=== PATIENT | male | born 1945 | race Caucasian/White ===

== ENCOUNTER 2021-01-14 11:22 | Inpatient (IN) | payer OTHER, SELFPAY ==
[~2021-01-14] VITALS: Ht 177.8 cm; Wt 74.8 kg
[2021-01-14] MEDS: HYDROCORTISONE NA SUCC 100 MG/2 ML VIAL IV SCH (08:40)
--- NOTE | 2021-01-14 11:23 | NUR ---
1117-- PT BIBRadha VIA GURNEY TO BED 01.
--- NOTE | 2021-01-14 11:30 | NUR ---
BILATERAL HAND 20 G IVS ESTABLISHED. IVS ARE PATENT.
[2021-01-14 11:32] VITALS: BP_SYST 154; BP_SYST 68; BP_DIAS 131; BP_DIAS 43
[2021-01-14] MEDS ORDERED: NACL 0.9% 1,000 ML IV ONE ×2 (11:35→13:00)
--- NOTE | 2021-01-14 11:36 | NUR ---
75/M [place]UEZ [place] [facility] [place] EMS STATES STAFF CALLED 911 AFTER PATIENT WAS FOUND SOB AND LETHARGIC X1 HOUR, OXYGEN SATURATION ON ROOM AIR 71% UPON EMS ARRIVAL, EMS INITIATED BVM ON SCENE, SATURATION 92%. PER STAFF PT COVID +. PATIENT HAS DIMINISHED BREATH SOUNDS THROUGHOUT, SCABBED ABRASION TO R KNEE, PRESSURE ULCER TO SACRUM (SEE PHOTO). GCS 8, UNABLE TO ANSWER TO QUESTIONS. PT IN GOWN, PLACED ON TOYS INSPECTOR. RT AT BEDSIDE. MEDHX: BLADDER AND KIDNEY CANCER, HTN, RIGHT SIDED WEAKNESS. SEE CHART FOR EXTENSIVE HX ALLERGIES: NKA
[2021-01-14 12:36] LABS: BASOPHILS % (AUTO) 0.1 % (0.0-2.0); HEMATOCRIT 33.6 % (36-52); HEMOGLOBIN 11.1 g/dL (12.0-18.0); LYMPHOCYTES # (AUTO) 0.2 K/uL (2.0-11.5); MEAN CORPUSCULAR HEMOGLOBIN 31 pg (27-31); MEAN CORPUSCULAR HGB CONC 33 g/dL (33-37); MEAN CORPUSCULAR VOLUME 93.1 fL (80-94); MONOCYTES # (AUTO) 1.1 K/uL (0.8-1.0); MONOCYTES % (AUTO) 4.4 % (1.7-9.3); NEUTROPHILS # (AUTO) 24.4 K/uL (1.8-7.7); NEUTROPHILS % (AUTO) 94.5 % (42.2-75.2); PLATELET COUNT (AUTO) 291 K/uL (140-450); RED BLOOD CELL COUNT(AUTO) 3.61 MIL/uL (4.20-6.10); RED CELL DISTRIBUTION WIDTH 15.7 % (11.6-13.7)
--- NOTE | 2021-01-14 12:45 | NUR ---
STRAIGHT CATHETER INSERTED FOR URINE SAMPLE USING STERILE TECHNIQUE. CLOUDY/DARK URINE COLLECTED AND WALKED TO LAB.
[2021-01-14] MEDS ORDERED: PIPERACILLIN/TAZOBACTAM 3.375 GM in DEXTROSE 5% 50 ML IV ONE (12:55)
[2021-01-14 12:58] LABS: ALBUMIN 2.2 g/dL (3.4-5.0); ANION GAP 17.6 (8-16); ASPARTATE AMINOTRANSFERASE 39 U/L (15-37); CARBON DIOXIDE 22.1 mmol/L (21-32); CHLORIDE 97 mmol/L (98-107); GLUCOSE 115 mg/dL (74-106); LIPASE 95 U/L (73-393); POTASSIUM 5.7 mmol/L (3.5-5.1); SODIUM SERUM 131 mmol/L (136-145); TOTAL BILIRUBIN 0.7 mg/dL (0.0-1.0)
[2021-01-14 12:59] LABS: APPEARANCE,URINE CLOUDY (CLEAR); BILIRUBIN,URINE 1+ (NEGATIVE); COLOR,URINE YELLOW (YELLOW); LEUKOCYTE ESTERASE ,URINE 3+ (NEGATIVE); UGLUCOSE NEGATIVE (NEGATIVE)
[2021-01-14 12:59] LABS: UREA NITROGEN, BLOOD 70 mg/dL (7-18)
[2021-01-14 13:00] LABS: CREATININE 4.1 mg/dL (0.6-1.3)
[2021-01-14 13:03] LABS: WHITE BLOOD COUNT (AUTO) 25.9 K/uL (4.8-10.8)
[2021-01-14] MEDS ORDERED: PIPERACILLIN/TAZOBACTAM 3.375 GM VIAL IV ONE (13:12)
[2021-01-14 13:19] LABS: NITRITE, URINE POSITIVE (NEGATIVE)
[2021-01-14 13:24] LABS: WBC,URINE TOO MANY TO COUNT /HPF (0-5)
[2021-01-14 13:27] LABS: BLOOD, URINE 1+ (NEGATIVE)
[2021-01-14] MEDS ORDERED: NACL 0.9% 500 ML IV ONE ×3 (13:30→18:35)
[2021-01-14 13:32] LABS: RBC,URINE 0-5 /HPF (0-5)
[2021-01-14] MEDS ORDERED: LORazepam 2 MG/ML VIAL IVP ONE (13:40)
[2021-01-14] MEDS ORDERED: LORazepam 2 MG/ML VIAL ONE (13:40)
[2021-01-14] MEDS ORDERED: NOREPINEPHRINE 4 MG/4 ML VIAL IV ONE ×4 (13:45→22:47)
[2021-01-14] MEDS ORDERED: MAG SULF 2000 MG/WATER PREMIX 50 ML IV PRN (14:00)
[2021-01-14] MEDS ORDERED: LORazepam 2 MG/ML VIAL IM/IVP PRN (14:00)
[2021-01-14] MEDS ORDERED: HYDROcodone/APAP 5/325 MG 1 TAB TAB PO PRN (14:00)
[2021-01-14] MEDS ORDERED: POTASSIUM CHLORIDE 10 MEQ TABER PO PRN (14:00)
[2021-01-14] MEDS ORDERED: ACETAMINOPHEN 325 MG TAB PO PRN (14:00)
[2021-01-14] MEDS ORDERED: DOCUSATE SODIUM 100 MG GELCAP PO PRN (14:00)
[2021-01-14] MEDS ORDERED: SODIUM PHOS / POTASSIUM PHOS 1 PKT PDR PO PRN (14:00)
[2021-01-14] MEDS ORDERED: ONDANSETRON 4 MG/2 ML VIAL IVP PRN (14:00)
[2021-01-14] MEDS ORDERED: SODIUM ZIRCONIUM CYCLOSILICATE 10 GM POWD.PACK PO ONE (14:05)
--- NOTE | 2021-01-14 14:15 | NUR ---
dr leon at bedside for central line insertion.
[2021-01-14] MEDS: NOREPINEPHRINE 4 MG in DEXTROSE 5% 250 ML IV ONE ×2 (14:30→14:32)
[2021-01-14 14:58] LABS: FREE T4 (FREE THYROXINE) 1.29 ng/dL (0.76-1.46); THYROID STIMULATING HORMONE 2.48 uIU/mL (0.34-3.74)
[2021-01-14] MEDS: NACL 0.9% 1,000 ML IV SCH (15:15)
[2021-01-14] MEDS ORDERED: RENAL DOSING PER PHARMACY MC PRN (15:50)
[2021-01-14 16:58] VITALS: BP 111/51
--- NOTE | 2021-01-14 17:15 | NUR ---
MONSTER LITTLE AND NOVEL SAMPLES COMPLETED AND WALKED TO LAB
--- NOTE | 2021-01-14 18:00 | NUR ---
WOUND PICTURES TAKEN AND SIGNED BY RN. DR DONNA ROSENBAUM TO SIGN WOUND PICTURES. FORMS PLACED IN CHART.
[2021-01-14] MEDS ORDERED: PHENYLEPHRINE 10 MG in NACL 0.9% 250 ML IV SCH (18:20)
--- NOTE | 2021-01-14 18:27 | NUR ---
CONTACTED DONNA, PT MAXED OUT ON LEVO WITH BP 87/41 JOVANNY 55. PER DONNA, START PT ON CHELSEY 50MCG/ MIN AND CONTACT CRITICAL CARE SPOKE WITH DR ROCHA, CRITICAL CARE, AND RECEIVED ORDER FOR 500ML NS BOLUS, HYDROCORTISONE 100 MG IV PUSH Q8 HR AND TO START PT ON VASOPRESSIN IF CHELSEY DOES NOT WORK VASOPRESSIN START AT 0.03UNITS/MIN FOR SYSTOLIC >90 OR MAP >65
[2021-01-14] MEDS ORDERED: PHENYLEPHRINE 10 MG/ML VIAL ONE ×2 (19:05→22:33)
--- NOTE | 2021-01-14 19:30 | NUR ---
SEE IV SPREAD SHEET FOR VITALS.
--- NOTE | 2021-01-14 19:35 | NUR ---
received report from Dory ROWAN for continuity of care
--- NOTE | 2021-01-14 19:35 | NUR ---
GAVE REPORT TO VIOLETA RN, TRANSFER OF CARE AT THIS TIME.
[2021-01-14 19:44] VITALS: BP 130/51
[2021-01-14] MEDS ORDERED: HYDROCORTISONE NA SUCC 100 MG/2 ML VIAL IV SCH (21:00)
[2021-01-14] MEDS: PIPERACILLIN/TAZOBACTAM 3.375 GM in DEXTROSE 5% 50 ML IV SCH (21:00)
--- NOTE | 2021-01-14 21:35 | NUR ---
Called Macy REED for verification on zosyn orders. Per discontinue 3.375gm zosyn Q8H and use the 2.25gm of zosyn Q8H
[2021-01-14] MEDS ORDERED: PIPERACILLIN/TAZOBACTAM 2.25 GM VIAL IV ONE (21:40)
[2021-01-14] MEDS: PIPERACILLIN/TAZOBACTAM 2.25 GM in DEXTROSE 5% 50 ML IV SCH (21:41)
[2021-01-14 22:53] VITALS: BP 101/49
--- NOTE | 2021-01-14 22:59 | NUR ---
PT PLACED ON NIV 02/12 f14 FOR WOB AND HFNC REMAINS ON STDBY AT BEDSIDE BIPAP ALARMS ON AND AUDIBLE BIPAP PLUGGED INTO RED OUTLET ED DR VIVAS PT IS CURRENTLY IN ED ON ICU HOLD
[2021-01-15] MEDS ORDERED: PHENYLEPHRINE 10 MG/ML VIAL ONE (00:07)
[2021-01-15] MEDS: NACL 0.9% 1,000 ML IV SCH ×3 (01:00→20:00)
[2021-01-15] MEDS ORDERED: NOREPINEPHRINE 4 MG/4 ML VIAL IV ONE ×2 (01:06→03:07)
--- NOTE | 2021-01-15 01:20 | NUR ---
pericare done and repositioned patient
--- NOTE | 2021-01-15 01:23 | NUR ---
ABNORM ABG RESULTS REPORTED TO DR BLANK PH 7.297 CO2 34.0 PO2 70.8 HCO3 16.2 BE -9.2 DR BLANK AWARE PT WAS PLACED ON NIV 02/12 f14 100% AND REQUESTING NO CHANGES AT THIS TIME BUT IS REQUESTING REPEAT ABG @ 8AM
[2021-01-15 01:41] VITALS: BP 127/57
[2021-01-15] MEDS: HYDROCORTISONE NA SUCC 100 MG/2 ML VIAL IV SCH (03:00)
[2021-01-15 03:08] VITALS: BP 115/50
[2021-01-15] MEDS ORDERED: MORPHINE SULFATE 4 MG/ML SYR IVP PRN (03:30)
[2021-01-15] MEDS ORDERED: ONDANSETRON 4 MG/2 ML VIAL IVP PRN (03:30)
[2021-01-15] MEDS ORDERED: ACETAMINOPHEN 325 MG TAB PO PRN (03:30)
[2021-01-15] MEDS ORDERED: SCOPOLAMINE 1.5 MG/72 HR PATCH TD PRN (03:30)
[2021-01-15] MEDS ORDERED: HYOSCYAMINE 0.125 MG TAB SL PRN (03:30)
--- NOTE | 2021-01-15 03:55 | NUR ---
see IV spreadsheet for VS
--- NOTE | 2021-01-15 03:58 | NUR ---
CALLED AND SPOKE TO INDRA. SHE DECIDED TO PUT THE PT ON DNR/COMFORT MEASURES ONLY. DR MERRILL ALSO SPOKE WITH TO CONFRIM DECISION.
--- NOTE | 2021-01-15 03:59 | NUR ---
PT TAKEN OFF BIPAP PLACED ON NRB MASK PER FAMILY FOR COMFORT. MORPHINE IVP GIVEN. PRESSORS TURNED OFF, PER FAMILY WISHES. REPOSITIONED FOR COMFORT. WILL CONTINUE TO OBSERVE
--- NOTE | 2021-01-15 04:03 | NUR ---
D/C NIV PER FAMILY WISHES BIPAP WAS PLACED ON STDBY AND PT PLACED ON NRB PER FAMILY "ALLOW PT TO BREATHE RA IF HE CANT TOLERATE ANY MASK"
[2021-01-15] MEDS: PIPERACILLIN/TAZOBACTAM 3.375 GM in DEXTROSE 5% 50 ML IV SCH (05:00)
[2021-01-15] MEDS: PIPERACILLIN/TAZOBACTAM 2.25 GM in DEXTROSE 5% 50 ML IV SCH ×3 (05:00→21:00)
--- NOTE | 2021-01-15 07:10 | NUR ---
Pt report given to Tova ROWAN. Transfer of care at this time.
--- NOTE | 2021-01-15 07:29 | NUR ---
report received from rukhsana rahman. transfer of care received
--- NOTE | 2021-01-15 07:37 | NUR ---
pt currently resting with eyes closed. bed in lowest position with siderail x2 up and bed locked. vital signs charted. will continue to monitor
[2021-01-15 08:01] LABS: HEMATOCRIT 30.3 % (36-52); HEMOGLOBIN 10.3 g/dL (12.0-18.0); LYMPHOCYTES # (AUTO) 0.3 K/uL (2.0-11.5); MEAN CORPUSCULAR HEMOGLOBIN 31 pg (27-31); MEAN CORPUSCULAR HGB CONC 34 g/dL (33-37); MEAN CORPUSCULAR VOLUME 92.3 fL (80-94); MONOCYTES # (AUTO) 1.1 K/uL (0.8-1.0); MONOCYTES % (AUTO) 4.4 % (1.7-9.3); NEUTROPHILS # (AUTO) 23.4 K/uL (1.8-7.7); NEUTROPHILS % (AUTO) 94.6 % (42.2-75.2); PLATELET COUNT (AUTO) 243 K/uL (140-450); RED BLOOD CELL COUNT(AUTO) 3.28 MIL/uL (4.20-6.10); RED CELL DISTRIBUTION WIDTH 15.5 % (11.6-13.7); WHITE BLOOD COUNT (AUTO) 24.8 K/uL (4.8-10.8)
[2021-01-15 08:09] LABS: ALBUMIN 1.8 g/dL (3.4-5.0); ANION GAP 16.1 (8-16); ASPARTATE AMINOTRANSFERASE 31 U/L (15-37); CARBON DIOXIDE 20.1 mmol/L (21-32); CHLORIDE 106 mmol/L (98-107); CREATININE 1.9 mg/dL (0.6-1.3); GLUCOSE 139 mg/dL (74-106); POTASSIUM 5.2 mmol/L (3.5-5.1); SODIUM SERUM 137 mmol/L (136-145); TOTAL BILIRUBIN 0.7 mg/dL (0.0-1.0); UREA NITROGEN, BLOOD 53 mg/dL (7-18)
--- NOTE | 2021-01-15 09:20 | NUR ---
SPOKE WITH DR SIMMONS ABOUT DOWNGRADING FROM ICU, PT IS NOW A MEDSURG HOLD.
[2021-01-15] MEDS ORDERED: PIPERACILLIN/TAZOBACTAM 2.25 GM VIAL IV ONE (13:04)
--- NOTE | 2021-01-15 16:39 | NUR ---
LOC AWAKE CONFUSED PATIENT REMOVAL OF NON REBREATHER MASK PROFESSIONAL DEVELOPMENT DIRECTOR TO PLACE ON NASAL CANNULA
--- NOTE | 2021-01-15 16:43 | NUR ---
PLACED ON SUPPLEMENTAL OXYGEN AT 3 LPM VIA NC SATURATION ASCENDING TO +91% EMELY/RN NOTIFIED
--- NOTE | 2021-01-15 16:48 | NUR ---
RT bedside and has placed pt on 3 L NC. current 02 sat is 90%
--- NOTE | 2021-01-15 17:24 | NUR ---
Patient will be admitted to care of . Admited to MED-SURG. Will go to room 115. Belongings list completed. Report to ANUM FAN.
--- NOTE | 2021-01-15 17:25 | NUR ---
RECIVED REPORT FROM ER NURSE JOSÉ, FOR A 75 MALE PT WITH SEPSIS AND ACUTE RESP.FAILURE.
--- NOTE | 2021-01-15 17:35 | NUR ---
PT ARRIVED TO ROOM 115 FROM ER ON BED. PT CC SEPSIS AND ACUTE RESP. FAILURE, DX; COVID. PT IS DNR PT BLOOD PRESSURE 112/62 HEART RATE 92, SAT% 92 HE IS ON NASAL CANULA, 3L, PT HAS AN IV IN HIS LEFT AND RIGHT HAND 20G , IV FLUID RUNNING ON ON R HAND IV, 100ML/H PT IS ALERT.HE DOESN,T ANSWER OR TALK. PT GOT CHANGED . ALL SAFETY MEASURES ON PLACE, CALLS LIGHT WITHIN REACH
--- NOTE | 2021-01-15 18:01 | NUR ---
PT SON CALLED TO ASK IF HE CAN COME TO VISIT HIS DAD, EXPLAINED TO HIM YHJE CONSEQUENCE OF INTERING A ROOM OF COVID POSITIVE, AND THAT HE NEED TO TREAT HIM SELF COVID POSITIVE AFTER LEAVING THE ROOM SINCE HIS DAD IS COVID POSITIVE.
--- NOTE | 2021-01-15 19:30 | NUR ---
REPORT GIVEN TO ACUPRESSURE THERAPIST NURSE
[2021-01-15 20:00] VITALS: BP 98/50
[2021-01-15] MEDS: ZOLPIDEM 5 MG TAB PO PRN (22:41)
--- NOTE | 2021-01-15 23:44 | NUR ---
I ADMITTED PT FOUND IN A ROOM ON BED , HE IS NON VERBAL I ASSESSED HIM AND CALLED HIS FOR SOME QUESTIONS ,PTS VSS HE IS SUPPOSED TO BE ON O2 BUT HE REMOVED IT AND HE DESATULATES BECAUSE HE HAS COVID HE IS RIGHT SIDED WEAKNESS BUT HE USES THE LEFT HAND TO REMOVE IT SO I TAPED THE CANNULLAS ON THE CHEEK , HE HAS REDNESS ON SACRAL, AND HAS TWO IV SITES ON RT AND LT HAND ONE RUNNING IVF . HE IS INCONTINENT AND I CLEAED HIM .
[2021-01-16] VITALS: BP 111/65
[2021-01-16] MEDS: MORPHINE SULFATE 2 MG/ML SYR IVP PRN ×2 (03:22→21:35)
--- NOTE | 2021-01-16 03:40 | NUR ---
PAIN MEDICATION IS EFFECTIVE
[2021-01-16 04:00] VITALS: BP_SYST 98
--- NOTE | 2021-01-16 04:54 | NUR ---
AM CARE LINEN CHANGED POSITION CHANGED I TEXTED MARGE ASKING HIM TO ORDER MITTENS FOR THE PT BECAUSE HE WAS REMOVING THE OXGYEN CANNULLA AND HE WAS DESATULATING ,HE DIDNOT ANSWER SO I TEXTED HIM AGAIN AFTER TAPING THE CANNULAS WITHOUT SUCCESS SO I APPLIED THE MITTEN TO THE LEFT ARM BECAUSE THE RIGHT ARM IS PARALLYSED I NOTIFIED THE JESSI NURSE .
--- NOTE | 2021-01-16 05:02 | NUR ---
THE JESSI NURSE ORDERED THE MITTEN
[2021-01-16] MEDS: PIPERACILLIN/TAZOBACTAM 2.25 GM in DEXTROSE 5% 50 ML IV SCH (05:07)
[2021-01-16] MEDS: NACL 0.9% 1,000 ML IV SCH ×2 (06:15→14:00)
--- NOTE | 2021-01-16 07:15 | NUR ---
RECEIVED REPORT FROM COORDINATOR OF EVALUATION NURSE FOR CONTINUITY OF CARE. PT IS AWAKE, LAYING IN BED. PT IS NONVERBAL AT BASELINE. ON 4L O2 NC WITH BREATHING UNLABORED. O2 SAT IS 90% ON MONITOR. ST ON TELE MONITOR. PT IS INCONTINENT WITH DRY DIAPER IN PLACE. SKIN IS WARM, DRY, AND INTACT. REDNESS AT THE SACRAL AREA. IV IS IN THE RIGHT HAND RUNNING NS AT 100 ML/HR. PT IS STABLE AT THIS TIME. MITTEN ON THE LEFT HAND, RESTRAINTS. PLAN OF CARE DISCUSSED.
[2021-01-16 08:00] VITALS: BP 116/69
[2021-01-16 08:00] LABS: ALBUMIN 1.7 g/dL (3.4-5.0); ANION GAP 15.6 (8-16); ASPARTATE AMINOTRANSFERASE 58 U/L (15-37); CARBON DIOXIDE 22.1 mmol/L (21-32); CHLORIDE 112 mmol/L (98-107); CREATININE 0.9 mg/dL (0.6-1.3); GLUCOSE 92 mg/dL (74-106); MAGNESIUM 1.9 mg/dL (1.8-2.4); POTASSIUM 3.7 mmol/L (3.5-5.1); SODIUM SERUM 146 mmol/L (136-145); TOTAL BILIRUBIN 0.6 mg/dL (0.0-1.0); UREA NITROGEN, BLOOD 28 mg/dL (7-18)
--- NOTE | 2021-01-16 08:47 | NUR ---
PATIENT HAS BEEN SCREENED AND CATEGORIZED HIGH NUTRITION RISK. PATIENT WILL BE SEEN WITHIN 1-2 DAYS OF ADMISSION. 01/16/21 RECEIVED FNS CONSULT FOR MALNUTRITION SIM STEWARD RD
[2021-01-16 09:10] LABS: BASOPHILS # (AUTO) 0.1 K/uL (0.00-0.22); BASOPHILS % (AUTO) 0.6 % (0.0-2.0); EOSINOPHILS # (AUTO) 0.2 K/uL (0-0.4); EOSINOPHILS % (AUTO) 0.8 % (0.0-4.0); HEMATOCRIT 30.9 % (36-52); HEMOGLOBIN 10.4 g/dL (12.0-18.0); LYMPHOCYTES # (AUTO) 0.5 K/uL (2.0-11.5); LYMPHOCYTES % (AUTO) 2.4 % (20.5-51.1); MEAN CORPUSCULAR HEMOGLOBIN 31 pg (27-31); MEAN CORPUSCULAR HGB CONC 34 g/dL (33-37); MONOCYTES # (AUTO) 0.9 K/uL (0.8-1.0); MONOCYTES % (AUTO) 4.2 % (1.7-9.3); NEUTROPHILS # (AUTO) 19.3 K/uL (1.8-7.7); RED BLOOD CELL COUNT(AUTO) 3.33 MIL/uL (4.20-6.10); RED CELL DISTRIBUTION WIDTH 16.1 % (11.6-13.7)
[2021-01-16 09:18] LABS: PLATELET COUNT (AUTO) 260 K/uL (140-450)
--- NOTE | 2021-01-16 09:30 | NUR ---
PT IS AWAKE, ON 5L O2 NC WITH BREATHING UNLABORED. PT HAS RESTRAINTS ON, ONE MITTEN ON THE LEFT HAND. PT WAS CHANGED AND REPOSITIONED. PT IS STABLE AT THIS TIME.
--- NOTE | 2021-01-16 11:30 | NUR ---
PT IS SLEEPING. CHEST RISE AND FALL SYMMETRICAL. NO RESPIRATORY DISTRESS NOTED ON 5L O2 NC. NO COUGHING OR FEVER PRESENT. WILL CONTINUE TO MONITOR.
--- NOTE | 2021-01-16 12:22 | NUR ---
MESSAGED DR. SIMMONS TO ASK ABOUT DIET ORDER. HE PLACED ORDER FOR PUREE DIET, REGULAR. INFORMED DIETARY AND SHE STATED SHE WOULD BRING A TRAY OVER FOR LUNCH.
--- NOTE | 2021-01-16 13:30 | NUR ---
PT WAS CHANGED AND REPOSITIONED. PT'S LINENS WERE CHANGED. PT VOIDED IN HIS DIAPER AND NEW DIAPER WAS PLACED. IV IS IN PLACE AND MITTEN IS ALSO IN PLACE. PT IS SCRATCHING FACE AT THIS TIME WITH MITTEN. PT APPEARS TO BE AGITATED. NO RESPIRATORY DISTRESS NOTED. WILL MONITOR.
[2021-01-16] MEDS: PIPERACILLIN/TAZOBACTAM 3.375 GM in DEXTROSE 5% 50 ML IV SCH ×2 (14:00→20:00)
[2021-01-16] MEDS ORDERED: GAUZE TP SCH (14:00)
[2021-01-16] MEDS ORDERED: FOAM DRESSING TP SCH (14:15)
--- NOTE | 2021-01-16 15:30 | NUR ---
ROUNDED ON PT. HE IS SLEEPING IN SEMI FOWLERS POSITION. ON 5L O2 NC WITH HUMIDIFIER IN PLACE. O2 SAT IS 95% AT THIS TIME. NO DISTRESS NOTED.
--- NOTE | 2021-01-16 15:52 | NUR ---
01/16/21 RD INITIAL ASSESSMENT COMPLETED PLEASE REFER TO NUTRITION ASSESSMENT UNDER CARE ACTIVITY FOR ESTIMATED NUTRITIONAL NEEDS. 1. CONTINUE PUREE DIET TOLERATED 2. RECOMMEND ENSURE AND GRETTA BID FOR ADITIONAL KCAL AND PROTEIN 3. ASSIST WITH MEALS 4. RD TO FOLLOW-UP 2-3 DAYS, HIGH RISK SIM STEWARD, RD
--- NOTE | 2021-01-16 17:30 | NUR ---
PT WAS CHANGED HE VOIDED IN HIS DIAPER. MITTEN IS IN PLACE ON THE LEFT HAND. IV IS INTACT AND PATENT. PT IS STABLE.
--- NOTE | 2021-01-16 19:10 | NUR ---
ENDORSED PT TO NUCLEAR PLANT CONSTRUCTION WORKER NURSE FOR CONTINUITY OF CARE. PT IS STABLE AT THIS TIME. O2 SAT IS 94% ON 5L O2 NC. PLAN OF CARE DISCUSSED.
--- NOTE | 2021-01-16 19:25 | NUR ---
RECEIVED BEDSIDE REPORT FROM DAY RN. PT IS AAOX1 HX DEMENTIA ON DROPLET ISO FOR COVID PNA. RESPIRATIONS ARE EQUAL AND UNLABORED ON 5L NC WITH HUMIDIFIER SAT 94%. PT WITH L HAND MITTEN D/T PULLING OFF NC. IV ON R CAMARA 22G IVF PER ORDERS AND L IJ SL. SKIN IS WARM AND DRY PURPLE DISCOLORATION ON SACRAL AREA WITH OPTIFOAM FOR PROTECTION. POC DISCUSSED WITH PT UNABLE TO COMPREHEND. CALL LIGHT IS [id number] REACH. WILL CONTINUE TO MONITOR.
[2021-01-16 20:00] VITALS: BP 155/78
--- NOTE | 2021-01-16 20:00 | NUR ---
VSS. PT SAT WELL ON 6L NC. DINNER AT BEDSIDE ATTEMPT TO ASSIST PATIENT PT TOOK A FEW SIPS OF JUICE REFUSED TO EAT. WILL ATTEMPT AGAIN LATER. IVPB NOW INFUSING PER ORDERS. L MITTEN REMAINS IN PLACE D/T PT ATTEMPTING TO REMOVE NC. SAFETY MEASURES ARE IN PLACE. WILL CONTINUE TO MONITOR.
--- NOTE | 2021-01-16 21:35 | NUR ---
PATIENT C/C OF PAIN WHEN HE MOVES LEG AND SHOULDER. ADMIN PRN MORPHINE WILL CONTINUE TO MONITOR.
--- NOTE | 2021-01-17 00:14 | NUR ---
ROUNDS MADE. PT APPEARS TO BE ASLEEP CHEST RISE AND FALL NOTED. CALL LIGHT IS WITHIN REACH. WILL CONTINUE TO MONITOR.
[2021-01-17] MEDS: GAUZE TP SCH ×2 (00:25→12:49)
--- NOTE | 2021-01-17 02:00 | NUR ---
ROUNDS MADE. PATIENT APPEARS TO BE ASLEEP. CHEST RISE AND FALL NOTED. CALL LIGHT IS WITHIN REACH. WILL CONTINUE TO MONITOR.
[2021-01-17 04:00] VITALS: BP 150/78
--- NOTE | 2021-01-17 04:00 | NUR ---
VITAL SIGNS ARE WITHIN NORMAL LIMITS. PATIENT WAS CLEANED AND REPOSITION FOR COMFORT. ALL NEEDS MET. WILL CONTINUE TO MONITOR.
[2021-01-17] MEDS: PIPERACILLIN/TAZOBACTAM 3.375 GM in DEXTROSE 5% 50 ML IV SCH ×3 (04:33→22:34)
[2021-01-17 07:30] LABS: HEMOGLOBIN 10.8 g/dL (12.0-18.0); LYMPHOCYTES # (AUTO) 0.4 K/uL (2.0-11.5); LYMPHOCYTES % (AUTO) 2.4 % (20.5-51.1); MEAN CORPUSCULAR HEMOGLOBIN 31 pg (27-31); MEAN CORPUSCULAR HGB CONC 34 g/dL (33-37); MEAN CORPUSCULAR VOLUME 93.1 fL (80-94); MONOCYTES # (AUTO) 0.7 K/uL (0.8-1.0); MONOCYTES % (AUTO) 4.5 % (1.7-9.3); NEUTROPHILS # (AUTO) 15.6 K/uL (1.8-7.7); NEUTROPHILS % (AUTO) 93.1 % (42.2-75.2); PLATELET COUNT (AUTO) 243 K/uL (140-450); RED BLOOD CELL COUNT(AUTO) 3.44 MIL/uL (4.20-6.10); RED CELL DISTRIBUTION WIDTH 15.7 % (11.6-13.7); WHITE BLOOD COUNT (AUTO) 16.8 K/uL (4.8-10.8)
--- NOTE | 2021-01-17 07:30 | NUR ---
GAVE BEDSIDE REPORT TO DAY RN. PT ENDORSED IN STABLE CONDITION.
--- NOTE | 2021-01-17 07:30 | NUR ---
NURSE REPORT REPORT OBTAINED FROM NIGHT NURSE KAILEY AT 0730 AND THIS NURSE ASSUMED CARE. VSS. AFEB. NO C/O PAIN, DISCOMFORT OR SOB. ON DROPLET PRECAUTIONS FOR COVID. IV NS AT 40 ML/HR INTO R HAND. NO REDNESS R SWELLING.
[2021-01-17 08:17] LABS: ALBUMIN 1.7 g/dL (3.4-5.0); ANION GAP 16.9 (8-16); ASPARTATE AMINOTRANSFERASE 34 U/L (15-37); CHLORIDE 114 mmol/L (98-107); CREATININE 0.8 mg/dL (0.6-1.3); GLUCOSE 104 mg/dL (74-106); MAGNESIUM 1.8 mg/dL (1.8-2.4); SODIUM SERUM 152 mmol/L (136-145); TOTAL BILIRUBIN 0.8 mg/dL (0.0-1.0); UREA NITROGEN, BLOOD 17 mg/dL (7-18)
[2021-01-17 08:23] LABS: POTASSIUM 2.9 mmol/L (3.5-5.1)
[2021-01-17] MEDS: FOAM DRESSING TP SCH (12:49)
--- NOTE | 2021-01-17 13:00 | NUR ---
NURSE CARE INCONTINENT OF URINE AND STOOL. CLEANSED. DRSG TO SACRAL AREA APPLIED. ON ANTIBIOTIC ZOSYN Q8H.
--- NOTE | 2021-01-17 16:00 | NUR ---
NURSE NOTES VS TAKEN. BP 172/78. NO C/O PAIN OR DISCOMFORT. K 2.9, GIVEN K THIS AM.
[2021-01-17] MEDS: DEXTROSE 5% 1,000 ML IV SCH (18:30)
--- NOTE | 2021-01-17 19:30 | NUR ---
NURSE REPORT AND ENDORSEMENT REPORT GIVEN TO NIGHT NURSE GUADALUPE TO ASSUME CARE OF PATIENT. ALL QUESTIONS ASKED.
--- NOTE | 2021-01-17 19:30 | NUR ---
RECEIVED REPORT FROM RN DAYSHIFT NURSE AT BEDSIDE FOR CONTINUITY OF CARE, PT IN STABLE CONDITION.
[2021-01-17 20:00] VITALS: BP 138/70
--- NOTE | 2021-01-17 20:00 | NUR ---
PT LYING IN BED AOX1, HE IS ON 6 LITERS 02 VIA N/C. HE HAS A RIGHT HAND 20 GUAGE RUNNING D5 AT 60MLS/HR. PT HAS ALSO A RIGHT IJ, WHICH IS SALINE LOCKED. PT HAS A RIGHT HAND MITT RESTRAINT DUE TO PT TRYING TO REMOVE RIGHT IJ AND SUPPLEMENTAL 02. CIRCULATION AND SKIN TO RIGHT HAND INTACT. V/S FOLLOWS: T 98.1 P 103 R 18 B/P 138/70 02 99%. PT HAS DROPLET AND FALLS PRECAUTIONS IN PLACE. Addendum: 01/17/21 at 2347 by Harika Radford RN PT HAS LEFT IJ AND LEFT HAND MITT
--- NOTE | 2021-01-17 21:50 | NUR ---
PT GIVEN ORDERED ZOSYN 3.375MG HUNG AND RUNNING AT 100MLS/HR. D5 CONTINUES AT 60MLS/HR. PT HAND MITT RESTRAINT IN PLACE AND HE IS TRYING TO RUB OFF IJ AND N/C. LEFT IJ AND N/C IN PLACE. ALL ORDERED PRECAUTIONS IN PLACE.
--- NOTE | 2021-01-17 23:30 | NUR ---
ROUNDS DONE, PT TURNED,CHANGED AND REPOSITIONED IN BED. LEFT MITT IN PLACE, CIRCULATION AND SKIN OK.02 RUNNING AT 6LITERS AND D5 CONTINUES AT 60MLS/HR NO S/S OF PAIN OR DISTRESS NOTED. ALL ORDERED PRECAUTIONS IN PLACE.
--- NOTE | 2021-01-18 00:35 | NUR ---
NEW ORDERED NOTED FOR ROCEPHIN 1GM TO RUN AT 100MLS/HR. IV ABT HUNG AND RUNNING ORDERED. ALL ORDERED PRECAUTIONS IN PLACE.
[2021-01-18] MEDS ORDERED: cefTRIAXone 1,000 MG VIAL ONE (00:45)
[2021-01-18] MEDS: DEXTROSE 5% 1,000 ML IV SCH ×2 (00:55→14:26)
[2021-01-18] MEDS: GAUZE TP SCH ×2 (01:00→13:08)
[2021-01-18 04:00] VITALS: BP 146/85
--- NOTE | 2021-01-18 06:00 | NUR ---
PT TURNED, CHANGED AND REPOSITIONED IN BED, IV SITES INTACT, LEFT HAND IT REMOVED, V/S STABLE ALL ORDERED PRECAUTIONS IN PLACE.
--- NOTE | 2021-01-18 07:10 | NUR ---
RECEIVE REPORT FROM HEAD OF GEOGRAPHY NURSE FOR CONTINUITY OF CARE. PATIENT SLEEPING. PATIENT ON 6L NC. NO ACUTE DISTRESS NOTED. ALL SAFETY MEASURES IN PLACE. CALL LIGHT WITHIN REACH. WILL CONTINUE TO MONITOR.
[2021-01-18 07:39] LABS: EOSINOPHILS % (AUTO) 0.1 % (0.0-4.0); HEMATOCRIT 32.2 % (36-52); HEMOGLOBIN 10.6 g/dL (12.0-18.0); LYMPHOCYTES # (AUTO) 0.5 K/uL (2.0-11.5); LYMPHOCYTES % (AUTO) 4.2 % (20.5-51.1); MEAN CORPUSCULAR HEMOGLOBIN 31 pg (27-31); MEAN CORPUSCULAR HGB CONC 33 g/dL (33-37); MEAN CORPUSCULAR VOLUME 94.5 fL (80-94); MONOCYTES # (AUTO) 0.6 K/uL (0.8-1.0); MONOCYTES % (AUTO) 5.1 % (1.7-9.3); NEUTROPHILS # (AUTO) 11.5 K/uL (1.8-7.7); NEUTROPHILS % (AUTO) 90.6 % (42.2-75.2); PLATELET COUNT (AUTO) 245 K/uL (140-450); WHITE BLOOD COUNT (AUTO) 12.7 K/uL (4.8-10.8)
[2021-01-18 08:00] VITALS: BP 150/87
--- NOTE | 2021-01-18 09:43 | NUR ---
PATIENT AWAKE. PATIENT NOTED TO BE CONFUSE. NO ACUTE DISTRESS NOTED. PATIENT ON 4L NC SATING AT 91%. ALL SAFETY MEASURES IN PLACE. ALL LIGHT WITHIN REACH. WILL CONTINUE TO MONITOR.
--- NOTE | 2021-01-18 10:50 | NUR ---
WOUND CARE EVALUATION NOTE: SKIN ASSESSMENT DONE WITH PRIMARY RN ON THIS PT ADMITTED WITH SHORTNESS OF BREATH, DESATURATION WITH COVID POSITIVE AND MULTIPLE DTI PRESSURE INJURY. PAST MEDICAL HISTORY BLADDER CANCER WITH RESECTION, NEUROPATHY, GOUT, DEMENTIA, DERMATITIS COVID 19. PT.SKIN IS WARM AND MOIST, BLE NO EDEMA, DORSAL PEDAL PULSES PRESENT AND NORMAL. INCONTINENT OF BOWEL AND BLADDER. COVID RELATED SKIN FAILURE DUE TO TISSUE LESS TOLERATE TO PRESSURE, SHERING AND POSSIBLE ASSOCIATED WITH MICROVASCULAR INJURY AND TROMBOSIS COMORBIDITIES RELATED TO DELAY WOUND HEALING, FURTHER SKIN BREAKS BOWEL AND URINARY INCONTINENCE, COVID INFECTION, HYPOXEMIC DECREASE TISSUE PERFUSION, TISSUE ISCHEMA, DECREASE MOBILITY AND FUNCTIONAL ABILITIES, AND HOB ELEVATED THE MAJORITY OF TIMES DUE TO MEDICAL REASONS. INTEGUMENTARY: -LIPS AND ORAL MUCOSA DRY -INCONTINENT ASSOCIATE DERMATITIS (IAD) TO: B/L GROINS, SCROTAL SKIN RED INTACT -PRESSURE ULCER INJURY DTI SACROCOCCYX TO INNER BUTTOCKS 10X6CM, WOUND BED 100% DARK PURPLE DENUDED SKIN, DAPHNE-WOUND SKIN MOIST WITH SURROUNDING REDNESS FURTHER DAMAGE INDICATED -LEFT KNEE PRESSURE INJURY UN-STAGEABLE 2X5 CM 100 % BROWN DRY STABLE SCAB, DAPHNE WOUND SKIN INTACT, NON-BLANCHABLE REDNESS. -TOES MULTIPLE DRY BROWN STABLE SCABS -LEFT HEEL BLANCHABLE REDNESS -RIGHT HEEL 3X3CM DTI 100% MAROON COLOR RECOMMENDATIONS: -APPLY THIN LAYER OF Z GUARD TO R/L GROINS EXTENDED TO SCROTAL BID AND PRN IF SOILING -RIGHT HEEL AND SACRALCOCCYX COVER WITH FOAM DRESSING QD AND PRN IF SOILING -PAINT LEFT KNEE AND TOES SCABS WITH BETADINE SOLUTION BID AND PAULA -APPLY HEEL RAISERS TO BOTH HEELS AT ALL TIMES -OFFLOAD BILATERAL HEELS BY PLACING PILLOWS UNDER CALVES UNLESS OTHERWISE CONTRAINDICATED -PRESSURE REDISTRIBUTION SURFACE THERAPY -TURN AND REPOSITION Q2H, OFFLOAD SACRALCOCCYX AND BUTTOCKS BY TURNING RIGHT AND LEFT -CONTINUE TO FOLLOW RD RECOMMENDATIONS PLEASE CONTACT WOUND CARE NURSE FOR ANY QUESTION AND CHANGE OF WOUND CONDITION
[2021-01-18] MEDS ORDERED: IV Rocephin IV (10:54)
--- NOTE | 2021-01-18 11:18 | NUR ---
DC PLANNING: KIMBER SPOKE WITH THE PATIENTS YESTERDAY REGARDING DC PLANNING. THE PATIENT HAS BEEN AT [facility] FOR ABOUT A MONTH S/P FALL AT HOME AND SURGERY FOR CERVICAL FUSION AT [facility]. PATIENT HAD SOME MOVEMENT IN HIS ARMS AND LEGS WORKING WITH PT AT [facility] AND HIS WOULD LIKE HIM TO RETURN TO [facility] FOR CONTINUED THERAPY. ORDER RECEIVED TODAY TO DC TO [facility] WITH IV ABX, ORDER AND PT NOTES FAXED TO MAY AT [facility]. KIMBER WILL FOLLOW FOR NEEDS. Addendum: 01/18/21 at 1315 by Bita Martins CM DC PLANNING: MULTIPLE ATTEMPTS TO REACH KIMBER OLVERA FOR [facility]. FINALLY MADE CONTACT, MAY STATES THAT HER SNFIST HAS NOT YET REVIEWED THE PATIENTS RECORDS BUT STATES THAT SHE THINKS HE WILL BE DENIED FOR SKILLED AND THAT HIS CARE AT [facility] WILL BE OUT OF POCKET. ALSO NOT WILLING TO GIVE AUTH FOR TRANSPORT UNLESS HE IS APPROVED SKILLED AT [facility]. PATIENT ACCEPTED TO [facility] ROOM 52A, DR. JARAIMLLO TO FOLLOW. KIMBER SPOKE WITH THE PATIENTS INDRA TO LET HER KNOW THAT AN ALTERNATE PLAN MIGHT NEED TO BE CONSIDERED BASED ON POTENTIAL DENIAL FOR SNF BY [facility]. JAREDCHLOE NOT SURE HOW SHE WANTS TO PROCEED, IF PATIENT DC'S TO HOME WILL NEED HOSPITAL BED, [facility], 3 IN 1 AND HOME HEALTH RN AND MACHINE WASHER. KIMBER ADVISED HER TO SPEAK WITH [facility] ABOUT HER OUT OF POCKET COST IF SHE WANTS THE PATIENT TO GO TO [facility] AT A ALF LEVEL. KIMBER WILL WAIT TO HEAR FROM MAY ([phone]) REGARDING AUTHORIZATION. PATIENT IS ALSO RECEIVING 2 K+ RIDERS THIS AFTERNOON PER PATIENTS RN, DR. SIMMONS NOTIFIED THAT PATIENT MIGHT NOT GO TODAY BECAUSE OF POTASSIUM BOLUSES AND IV ABX. CM WILL FOLLOW FOR NEEDS. Addendum: 01/18/21 at 1539 by Bita Martins CM DC PLANNING: PATIENT DENIED BY [facility] TO RETURN TO [facility] SKILLED. THE FAMILY WILL PAY OUT OF POCKET FOR THE PATIENT TO RETURN THERE. BABS AT [facility] HAS APPROVED THE PATIENT TO GO THERE, FAMILY WILL NEED TO PAY WITH A CASHIERS CHECK IN THE AM. DR. SIMMONS AWARE, [facility] IS ALSO REFUSING TO PAY FOR TRANSPORT, TRANSPORT ([phone]) WILL NEED TO BE CALLED FOR [facility]URNEY TRANSPORT WITH O2 ONCE [facility] CALLS TO CONFIRM THAT PATIENT CAN COME. PATIENT IS ASSIGNED TO ROOM 52A. CM WILL FOLLOW FOR NEEDS.
[2021-01-18 11:52] LABS: ALBUMIN 1.9 g/dL (3.4-5.0); ASPARTATE AMINOTRANSFERASE 32 U/L (15-37); CARBON DIOXIDE 27.7 mmol/L (21-32); CHLORIDE 114 mmol/L (98-107); CREATININE 0.8 mg/dL (0.6-1.3); GLUCOSE 127 mg/dL (74-106); MAGNESIUM 1.7 mg/dL (1.8-2.4); SODIUM SERUM 154 mmol/L (136-145); TOTAL BILIRUBIN 0.6 mg/dL (0.0-1.0); UREA NITROGEN, BLOOD 12 mg/dL (7-18)
[2021-01-18 11:53] LABS: POTASSIUM 2.7 mmol/L (3.5-5.1)
--- NOTE | 2021-01-18 12:45 | NUR ---
PATIENT SLEEPING. NO ACUTE DISTRESS NOTED. PATIENT ON 4L NC SATING 91%. ALL SAFETY MEASURES IN PLACE. CALL LIGHT WITHIN REACH. WILL CONTINUE TO MONITOR.
[2021-01-18] MEDS ORDERED: POTASSIUM CHLORIDE 40 MEQ, LIDOCAINE MPF 1% 25 MG in NACL 0.9% 250 ML IV SCH ×2 (13:00→18:00)
[2021-01-18] MEDS: FOAM DRESSING TP SCH (13:08)
--- NOTE | 2021-01-18 14:29 | NUR ---
PATIENT AWAKE. BREATHING EVEN AND UNLABORED. NO ACUTE DISTRESS NOTED. PATIENT ON 5 L NC SATING AT 92%. ALL SAFETY MEASURES IN PLACE. CALL LIGHT WITHIN REACH. WILL CONTINUE TO MONITOR.
--- NOTE | 2021-01-18 16:40 | NUR ---
01/18/21 RD FOLLOW UP COMPLETED PLEASE REFER TO NUTRITION ASSESSMENT UNDER CARE ACTIVITY FOR ESTIMATED NUTRITIONAL NEEDS. 1. CONTINUE PUREE DIET TOLERATED 2. CONTINUE GRETTA BID AND ENSURE BID 3. ENCOURAGE PO INTAKE GREATER THAN 75% 4. CONSIDER ENTERAL NUTRITION IF PT CONTINUES TO REFUSE MEALS 5. RD TO FOLLOW-UP 2-3 DAYS, HIGH RISK SIM STEWARD, RD
--- NOTE | 2021-01-18 16:41 | NUR ---
PATIENT AWAKE. BREATHING EVEN AND UNLABORED. NO ACUTE DISTRESS NOTED. PATIENT ON 5 L NC SATING 93% O2. ALL SAFETY MEASURES IN PLACE. CALL LIGHT WITHIN REACH. WILL CONTINUE TO MONITOR.
--- NOTE | 2021-01-18 17:59 | NUR ---
PATIENT AWAKE. BREATHING EVEN AND UNLABORED. NO ACUTE DISTRESS NOTED. PATIENT ON 5L NC SATING AT 92% O2. DINKEY ENGINE MECHANIC AT BESIDE CLEANING PATIENT. ALL SAFETY MEASURES IN PLACE. CALL LIGHT WITHIN REACH. WILL CONTINUE TO MONITOR.
--- NOTE | 2021-01-18 19:10 | NUR ---
ENDORSED TO PCA ASSISTED LIVING NURSE FOR CONTINUITY OF CARE. PATIENT STABLE. ALL SAFETY MEASURES IN PLACE.
[2021-01-18 20:00] VITALS: BP 115/74
[2021-01-19] MEDS ORDERED: Z-GUARD PASTE TP SCH (01:00)
[2021-01-19] MEDS: GAUZE TP SCH (01:05)
[2021-01-19] MEDS: ZOLPIDEM 5 MG TAB PO PRN (03:10)
[2021-01-19] MEDS: DEXTROSE 5% 1,000 ML IV SCH (03:53)
[2021-01-19 04:20] VITALS: BP 121/68
--- NOTE | 2021-01-19 04:23 | NUR ---
The patient had one episode of insomnia and ambin was given
--- NOTE | 2021-01-19 04:25 | NUR ---
the pateint vitals are stable , breathing is even and unlabored . O2 stat 98%
[2021-01-19 07:29] LABS: BASOPHILS % (AUTO) 0.2 % (0.0-2.0); EOSINOPHILS % (AUTO) 0.2 % (0.0-4.0); HEMATOCRIT 35.1 % (36-52); HEMOGLOBIN 11.6 g/dL (12.0-18.0); LYMPHOCYTES # (AUTO) 0.8 K/uL (2.0-11.5); LYMPHOCYTES % (AUTO) 4.9 % (20.5-51.1); MEAN CORPUSCULAR HEMOGLOBIN 31 pg (27-31); MEAN CORPUSCULAR HGB CONC 33 g/dL (33-37); MEAN CORPUSCULAR VOLUME 94.8 fL (80-94); MONOCYTES # (AUTO) 0.9 K/uL (0.8-1.0); MONOCYTES % (AUTO) 5.7 % (1.7-9.3); NEUTROPHILS # (AUTO) 14.5 K/uL (1.8-7.7); PLATELET COUNT (AUTO) 264 K/uL (140-450); RED CELL DISTRIBUTION WIDTH 16.3 % (11.6-13.7); WHITE BLOOD COUNT (AUTO) 16.3 K/uL (4.8-10.8)
[2021-01-19 09:06] LABS: ASPARTATE AMINOTRANSFERASE 24 U/L (15-37); CARBON DIOXIDE 25.1 mmol/L (21-32); CHLORIDE 109 mmol/L (98-107); CREATININE 0.9 mg/dL (0.6-1.3); GLUCOSE 99 mg/dL (74-106); POTASSIUM 4.1 mmol/L (3.5-5.1); SODIUM SERUM 144 mmol/L (136-145); TOTAL BILIRUBIN 0.4 mg/dL (0.0-1.0); UREA NITROGEN, BLOOD 15 mg/dL (7-18)
[2021-01-19] MEDS ORDERED: Foam Dressing TP (11:23)
[2021-01-19] MEDS ORDERED: ACET-1182 PO (11:23)
[2021-01-19] MEDS ORDERED: ZGUARD TP (11:23)
[2021-01-19] MEDS ORDERED: HYOS-91 SL (11:23)
[2021-01-19] MEDS ORDERED: Gauze TP (11:23)
== END 2021-01-19 13:10 | DRG 871 ==
LOC: MED 11:22 → MTU 14:02
PROVIDERS: ADMIT Family Medicine; ATTEND Family Medicine
PROC: 05HY33Z Insertion of Infusion Device into Upper Vein, Percutaneous Approach (ICD-10-PCS; principal; 2021-01-14)
PROC: B54NZZA Ultrasonography of Left Upper Extremity Veins, Guidance (ICD-10-PCS; 2021-01-14)
PROC: 5A09357 Assistance with Respiratory Ventilation, Less than 24 Consecutive Hours, Continuous Positive Airway Pressure (ICD-10-PCS; 2021-01-14)
PROC: 5A0935A Assistance with Respiratory Ventilation, Less than 24 Consecutive Hours, High Flow/Velocity Cannula (ICD-10-PCS; 2021-01-14)
DX: A41.51 Sepsis due to Escherichia coli [E. coli] (principal); N17.0 Acute kidney failure with tubular necrosis; E43 Unspecified severe protein-calorie malnutrition; U07.1 COVID-19; J96.01 Acute respiratory failure with hypoxia; R65.21 Severe sepsis with septic shock; J12.82 Pneumonia due to coronavirus disease 2019; N39.0 Urinary tract infection, site not specified; E87.1 Hypo-osmolality and hyponatremia; G62.9 Polyneuropathy, unspecified; M10.9 Gout, unspecified; E87.5 Hyperkalemia; F03.90 Unspecified dementia, unspecified severity, without behavioral disturbance, psychotic disturbance, mood disturbance, and anxiety; Z85.51 Personal history of malignant neoplasm of bladder; Z68.23 Body mass index [BMI] 23.0-23.9, adult
CPT/HCPCS: 36415; 36600; 71045; 80053; 81001; 82150; 82803; 83036; 83605; 83690; 83735; 83880; 84100; 84439; 84443; 84484; 85025; 85610; 87040; 87081; 87086; 93005; 96361; 96365; 96375; 97163-GP; 99291; J0696; J1720; J2001; J2060; J2270; J2370; J2543; J3480; J3490; J7030; J7060; Q0092; U0003